=== PATIENT | female | born 1975 | race Caucasian/White ===

== ENCOUNTER 2025-07-24 17:52 | Emergency (ER) | payer BC ==
[~2025-07-24] VITALS: Ht 165.1 cm; Wt 61.8 kg
[2025-07-24 18:00] VITALS: TEMP 98.2
[2025-07-24] MEDS ORDERED: BACI28.410 TP (20:40)
[2025-07-24] MEDS ORDERED: ACET-66 PO (20:40)
[2025-07-24] MEDS ORDERED: IBUP-1554 PO (20:40)
[2025-07-24 21:00] VITALS: BP 129/69; PULSE 78; RESP 18; O2SAT 99
== END 2025-07-24 23:31 | disposition home or self-care (01) ==
LOC: EMS 17:52
DX: S01.01XA Laceration without foreign body of scalp, initial encounter (principal); S90.02XA Contusion of left ankle, initial encounter; S60.221A Contusion of right hand, initial encounter; S30.810A Abrasion of lower back and pelvis, initial encounter; W19.XXXA Unspecified fall, initial encounter; W22.01XA Walked into wall, initial encounter; Y93.89 Activity, other specified; Y92.89 Other specified places as the place of occurrence of the external cause; Y99.8 Other external cause status
CPT/HCPCS: 12002; 99283

== ENCOUNTER 2025-08-05 15:20 | Emergency (ER) | payer BC ==
[~2025-08-05] VITALS: Ht 167.6 cm; Wt 59.1 kg
[~2025-08-05 15:20] MED LIST: ACET-66 PO; BACI28.410 TP; IBUP-1554 PO
[2025-08-05 16:18] VITALS: BP 95/64; PULSE 66; RESP 18; TEMP 98.6; O2SAT 100
== END 2025-08-05 16:28 | disposition home or self-care (01) ==
LOC: EMS 15:20
DX: S01.01XD Laceration without foreign body of scalp, subsequent encounter (principal); Z79.899 Other long term (current) drug therapy; X58.XXXD Exposure to other specified factors, subsequent encounter
CPT/HCPCS: 99282; Z7502